=== PATIENT | male | born 1955 | race Caucasian/White ===

== ENCOUNTER 2018-07-06 20:34 | Emergency (ER) | payer OTHER ==
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
[2018-07-18 07:30] VITALS: BP 128/77
== END 2018-07-06 21:27 | disposition home or self-care (01) ==
LOC: CED 20:34
PROC: 0HQDXZZ Repair Right Lower Arm Skin, External Approach (ICD-10-PCS; principal; 2018-07-06)
DX: S51.011A Laceration without foreign body of right elbow, initial encounter (principal); V18.0XXA Pedal cycle driver injured in noncollision transport accident in nontraffic accident, initial encounter; Y93.55 Activity, bike riding; Y99.8 Other external cause status; Y92.828 Other wilderness area as the place of occurrence of the external cause